=== PATIENT | male | born 1945 | race Caucasian/White ===

== ENCOUNTER 2020-09-21 13:48 | Emergency (ER) | payer MEDICARE, OTHER, SELFPAY ==
[2020-09-21] VITALS (31 sets, daily range): BP systolic 110–156; BP diastolic 51–84; PULSE 65–91; RESP 14–20; TEMP 36.6; O2SAT 98–100
--- NOTE | 2020-09-21 13:59 | ED.WEAKNESS ---
HPI - Weakness General Chief complaint: Weakness Stated complaint: WEAKNESS Time Seen by Provider: 09/21/20 13:57 History of Present Illness HPI Narrative: 75 yo [place] patient with unknown medical history presents from home for weakness. He reports that he was recently hospitalized at the [place]. During that time he had a Hernandez catheter placed. He does not know why. At least since that Related Data Home Medications Medication Instructions Recorded Confirmed rivaroxaban 15 mg PO DAILY 09/21/20 09/21/20 tamsulosin 0.4 mg PO DAILY 09/21/20 09/21/20 thiamine HCl (vitamin B1) 100 mg PO DAILY 09/21/20 09/21/20 Allergies Allergy/AdvReac Type Severity Reaction Status Date / Time No Known Allergies Allergy Unverified 09/21/20 14:05 Review of Systems Review of Systems: ROS unobtainable: Yes unobtainable due to mental status Constitutional: Constitutional: Reports weakness Cardiovascular: Cardiovascular: Denies chest pain Respiratory: Respiratory: Denies dyspnea Gastrointestinal: Gastrointestinal: Denies abdominal pain and Denies nausea Genitourinary: Genitourinary: Reports as per HPI Musculoskeletal: Musculoskeletal: Denies back pain Neurologic: Denies dizziness and Reports weakness [facility] Social History Social History Gender identity (if verbalized by the patient): Male Exam Const: General: no acute distress, alert and ill appearing chronically HENMT: Mouth: Yes dry mucous membranes Eyes: Conjunctivae: conjunctivae normal Pupils: Equal, round and reactive pupils present EOM: EOMs intact bilaterally Neck: Neck: normal visual inspection Resp: Effort & Inspection: normal respiratory effort Auscultation: clear to auscultation bilaterally Cardio: Rate: regular rate Rhythm: regular rhythm GI: Inspection: non-distended GI Palp: Yes Soft to palpation and No Tenderness to palpation present (GI) Urinary Catheter: Urinary Catheter: other (turbid with brown sedament ) Skin: General skin exam: normal color Neuro: General: moves all extremities, no focal motor deficits and CN's II-XI intact bilaterally Speech: normal speech Other: oriented x2 Extrem: General: normal to inspection and no edema Course Vital Signs Vital signs: Vital Signs Temperature 36.6 C 09/21/20 13:49 Pulse Rate 91 09/21/20 13:49 Respiratory Rate 19 09/21/20 13:49 Blood Pressure 142/65 H 09/21/20 13:49 Pulse Oximetry 100 09/21/20 13:49 Temperature 36.6 C 09/21/20 13:49 Pulse Rate 78 09/21/20 20:01 Respiratory Rate 18 09/21/20 20:01 Blood Pressure 118/66 09/21/20 20:00 Pulse Oximetry 100 09/21/20 20:01 MDM - Weakness Differential Diagnosis Differential diagnosis: Likely anemia, hypoglycemia, sepsis, dehydration and other (UTI,) Medical Records Attestation: I reviewed the patient's medical records. Lab Data Attestation: I reviewed the patient's lab results. Result diagrams: 09/21/20 14:50 09/21/20 14:50 Labs: Lab Results 09/21/20 09/21/20 09/21/20 Range/Units 14:50 14:50 17:39 WBC 11.8 H (4.5-10.0) K/mm3 RBC 4.17 L (4.6-6.20) M/mm3 Hgb 13.5 L (14.0-18.0) g/dL Hct 39.4 L (42.0-52.0) % MCV 94.5 (80-100) fl MCH 32.4 (26-34) pg MCHC 34.3 (32-36) g/dl RDW 13.6 (11.5-14.5) % Plt Count 349 (150-375) k/mm3 MPV 10.5 H (7.4-10.4) fl Immature Gran % (Auto) 0.7 H (0-0.5) % Neut % (Auto) 80.7 H (45.5-73.1) % Lymph % (Auto) 11.3 L (18.3-44.2) % Davie % (Auto) 6.6 (2.6-8.5) % Eos % (Auto) 0.2 (0-4.4) % Baso % (Auto) 0.5 (0.2-1.2) % Lymph # (Auto) 1.34 (0.9-3.2) K/mm3 Davie # (Auto) 0.8 H (0.1-0.6) K/mm3 Eos # (Auto) 0.0 (0-0.3) K/mm3 Baso # (Auto) 0.1 (0.0-0.1) K/mm3 Abs Immat Gran (auto) 0.08 H (0.00-0.031) K/mm3 Absolute Neuts (auto) 9.6 H (1.3-6.7) K/mm3 Absolute Nucleated RBC 0.0 (0.0-0.012) K/mm3 Nucleated RBC % 0.0 (0.0-0.2) % Sodium 133
--- NOTE | 2020-09-21 14:00 | ECG_ITS ---
Measurements Intervals [place] Rate: 79 P: 13 ME: 112 QRS: -67 QRSD: 126 T: 63 QT: 395 QTc: 454 Interpretive Statements SINUS RHYTHM WITH SHORT ME INTERVAL ATRIAL PREMATURE COMPLEXES RIGHT BUNDLE BRANCH BLOCK LEFT ANTERIOR FASCICULAR BLOCK ANTEROSEPTAL INFARCT, AGE INDETERMINATE BASELINE ARTIFACT- I, II, III, AVR, AVL, AVF, V1, V4-V5 ABNORMAL ECG Electronically Signed On 09-21-2020 14:19:40 CDT by Saw Orellana D.O.
[2020-09-21] MEDS: SODIUM CHLORIDE 0.9% IV 1,000 ML 999 ML IV CONT ×2 (14:24→17:41)
[2020-09-21 14:59] LABS: Basophils Absolute Auto 0.1 K/mm3 (0.0-0.1); Basophils Percent Auto 0.5 % (0.2-1.2); Eosinophils Percent Auto 0.2 % (0-4.4); Hematocrit 39.4 % (42.0-52.0); Hemoglobin 13.5 g/dL (14.0-18.0); Immature Granulocyte Absolute 0.08 K/mm3 (0.00-0.031); Immature Granulocyte Percent A 0.7 % (0-0.5); Lymphocytes Absolute Auto 1.34 K/mm3 (0.9-3.2); Lymphocytes Percent Auto 11.3 % (18.3-44.2); Mean Corpuscular HGB Conc 34.3 g/dl (32-36); Mean Corpuscular Hemoglobin 32.4 pg (26-34); Mean Corpuscular Volume 94.5 fl (80-100); Mean Platelet Volume 10.5 fl (7.4-10.4); Monocytes Absolute Auto 0.8 K/mm3 (0.1-0.6); Monocytes Percent Auto 6.6 % (2.6-8.5); Neutrophils Absolute Auto 9.6 K/mm3 (1.3-6.7); Neutrophils Percent Auto 80.7 % (45.5-73.1); Platelet Count Result 349 k/mm3 (150-375); Red Blood Count 4.17 M/mm3 (4.6-6.20); Red Cell Distribution Width 13.6 % (11.5-14.5); White Blood Count 11.8 K/mm3 (4.5-10.0)
--- NOTE | 2020-09-21 15:06 | PC.NURSE ---
sister called and states that pt was seen at the [place] about a month ago and was having urinary retention. States that pt was suppose to have an appointment to get it removed today.
[2020-09-21 15:13] LABS: Alanine Aminotransferase 16 U/L (4-50); Albumin Level 4.1 g/dL (3.5-5.1); Alkaline Phosphatase 97 U/L (38-126); Anion Gap 6 mmol/L (8-16); Aspartate Amino Transferase 20 U/L (17-59); Bilirubin,Total 0.2 mg/dL (0.2-1.3); Blood Urea Nitrogen 10 mg/dL (9-20); Calcium 9.3 mg/dL (8.4-10.2); Carbon Dioxide 27 mmol/L (22-30); Chloride 100 mmol/L (98-107); Estimated CRCL calculation 66 ml/min; Estimated Glomerular Filt Rate > 60; Glucose 123 mg/dL (75-110); Potassium 4.5 mmol/L (3.4-5.0); Sodium 133 mmol/L (137-145)
--- NOTE | 2020-09-21 15:44 | PC.NURSE ---
Not enough urine to send
--- NOTE | 2020-09-21 16:45 | PC.NURSE ---
Pt not producing much output in harding, still not enough to send
[2020-09-21] MEDS: LIDOCAINE HCL 2% GEL UROJET 10 ML PKG (17:41)
--- NOTE | 2020-09-21 17:42 | PC.NURSE ---
removed pt current harding, pt scrotum and buttocks very dirty, dried feces. cleaned up pt and replaced harding.
[2020-09-21 17:50] LABS: Add Urine Microscopic? YES; Appearance Urine Cloudy (Clear); Bacteria Urine 1+ /hpf; Bilirubin Urine Negative (Negative); Blood Urine 2+ (Negative); Color Urine Yellow (Yellow); Glucose Urine UA Negative (Negative); Ketones Urine Trace mg/dL (Negative); Leukocyte Esterase Ur 3+ LEU/UL (Negative); Mucus Urine Rare /lpf; Nitrate Urine Positive (Negative); Protein Urine 2+ mg/dL (Negative); RBC Urine 21-50 /hpf (0-2); Specific Grav Ur 1.014 (1.001-1.035); Squamous Epithelial Cell Urine Rare /hpf (Few); Urobilinogen Urine Negative mg/dL (<2.0); WBC Urine 51-75 /hpf
--- NOTE | 2020-09-21 21:06 | PC.NURSE ---
OKSANA Alanis called stating patient has been accepted. He is going to [facility], # to call report is [phone], EXT. [phone]. Room # will be given at that time.
--- NOTE | 2020-09-21 21:43 | PC.NURSE ---
Report called to [facility]. Questions answered. Sally Robles (sister) gives verbal permission to transfer. Transfer form filled out.
[2020-09-22 00:02] VITALS: PULSE 64; RESP 18
== END 2020-09-22 00:24 | disposition short-term general hospital (02) ==
PROVIDERS: Emergency Provider Emergency Medicine
DX: N39.0 Urinary tract infection, site not specified (principal); R53.1 Weakness
CPT/HCPCS: 36415; 51702; 80053; 81001; 85025; 87086; 87088; 93005; 96361; 96365; 99284; J0696; J7030